=== PATIENT | male | born 1940 | race Caucasian/White ===

== ENCOUNTER → 2017-08-25 13:06 | Outpatient (CLI) | payer MEDICARE, OTHER | END | disposition home or self-care (01) | LOC: D.CT 13:06 | DX: K57.32 Diverticulitis of large intestine without perforation or abscess without bleeding (principal) ==

== ENCOUNTER 2018-01-21 11:48 | Inpatient (IN) | payer MEDICARE, OTHER ==
[~2018-01-21] VITALS: Ht 175.3 cm; Wt 75.5 kg
--- NOTE | ~2018-01-21 | MORECARE ---
CASE MANAGEMENT DISCHARGE SUMMARY PATIENT: KATHY MARTINS UNIT: [id number] ADM DATE: 01/21/18 AGE: 77 : 42 SEX: M ROOM/BED: D.2220 AUTHOR: ALMADOC PHYSICIAN: REFERRING PHYSICIAN: BRYSON JUAREZ DO DATE OF SERVICE: 01/23/18 Discharge Plan Patient Name: KATHY MARTINS Facility[facility]:[place] : 1940 Planned Disposition: Home Anticipated Discharge Date: Discharge Date: Expected LOS: Initial Reviewer: [email or web address] Initial Review Date: 01/21/2018 Generated: 01/23/18 12:44 pm Comments DCP- Discharge Planning Updated by [email or web address]: Charity Kitchen on 01/23/18 10:[address] Patient Name: KATHY MARTINS Admission Status: ER Accout number: [id number] Admission Date: 01-21-2018 : 1940 Admission Diagnosis: Attending: Bryson Juarez Current LOS: 2 Anticipated DC Date: Planned Disposition: Home Primary Insurance: MEDICARE A & B Discharge Planning Comments: CM met with patient to assess discharge planning needs. Patient lives independently at home and plans to return there at discharge. 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 He denies any HH or DME needs at this time. There are 2 steps to his home that he does not have any problems with . CM will continue to follow and assist as needed Fine Artist: Charity Kitchen DCPIA - Discharge Planning Initial Assessment Updated by [email or web address]: Charity Kitchen on 01/23/18 11:40 am * Is the patient Alert and Oriented? Yes * How many steps to enter\exit or inside your home? * PCP LARRY * Pharmacy [facility] * Preadmission Environment Home with Family * ADLs Independent * Equipment None * List name and contact numbers for known caregivers / representatives who currently or will assist patient after discharge: BRANDIE () [phone] * Verbal permission to speak to the caregivers and representatives has been obtained from the patient. Yes * Community resources currently utilized None * Additional services required to return to the preadmission environment? No * Can the patient safely return to the preadmission environment? Yes * Has this patient been hospitalized within the prior 30 days at any hospital? No Patient Name: KATHY MARTINS Page [id number] at 1144 All edits/amendments must be made on the electronic document DICTATION DATE: 01/23/18 114 CHHA: ALEC 01/23/18 1143 RPT#: [id number] DC DATE: STATUS: ADM IN [facility] [address] [place] [address] END OF REPORT
--- NOTE | ~2018-01-21 | EC ---
PATIENT:KATHY MARTINS DATE OF SERVICE: 01/21/18 SEX: M MEDICAL RECORD: [id number] DATE OF : [birth year] LOCATION:D.MS [address]222 AGE OF PATIENT: 77 ADMISSION DATE: 01/21/18 REFERRING PHYSICIAN: INTERPRETING PHYSICIAN: MERLIN CASTELLANOS MD ECHOCARDIOGRAM REPORT ECHO CHARGES 4 ECHO COMPLETE Date: 01/22/18 CLINICAL DIAGNOSIS: SYNCOPE ECHOCARDIOGRAPHIC MEASUREMENTS (adult normal given) AC root (d.<3.7cm) 4.0 cm LV Septum d (<1.2 cm> 0.8 cm Valve Excursion 1.5 cm LV Septum (systole) 1.2 cm Left Atria (s.<4.0cm> 2.7 cm LVPW d(<1.2cm) 1.2 cm RV (d.<2.3cm) 2.7 cm LVPW (sytole) 1.3 cm LV diastole(<5.6CM) 5.2 cm MV E-F(>70mm/sec) cm LV systole 4.3 cm LVOT Diameter 1.7 cm MV exc.(>10mm) cm Est.ejection fraction (50-75%) % DOPPLER: LVIT cm/sec A 76 cm/sec E 77 cm/sec LA cm/sec RVSP 18.0 mmHg LVOT 102 cm/sec AOP1/2T m/s Asc. Ao 124 cm/sec RVOT 79 cm/sec RA cm/sec PA 49 cm/sec AV Gradient Peak 6.2 mmHg AV Mean 3.8 mmHg AV Area 2.5 cm MV Gradient Peak 2.9 mmHg MV Mean 2.1 mmHg MV Area cm COMMENTS: Block Engraver: Surya ACOSTAPIPER SERGE Floral Department Specialist: Robert Castellanos TAPE# PACS Pericardial Effusion N DATE OF SERVICE: 01/23/2018 FINDINGS: 1. Left ventricular chamber size is within normal limits. Left ventricular systolic function is normal. Overall ejection fraction estimated at 65%. 2. Left atrium, right atrium, and right ventricular chamber sizes are within normal limits. 3. Valvular structures have normal structure and motion. 4. Doppler interrogation reveals only trace tricuspid regurgitation, no other valvular insufficiency or stenosis. Pulmonary systolic pressure is normal, ECHOCARDIOGRAM REPORT [id number] KATHY MARTINS estimated 18 mmHg. 5. No evidence of pericardial effusion or left ventricular thrombus. TRANSINT:[id number] Voice Confirmation ID: [id number] DOCUMENT ID: [id number] MERLIN CASTELLANOS MD at 1324 CC: [id number] DICTATION DATE: 01/23/18 1112 FIRST OFFICER AND FLIGHT INSTRUCTOR: 01/23/18 1229 ADM [place] [id number] [place] [id number]
[2018-01-21] MEDS ORDERED: LEVOTHYROXINE (11:49)
[2018-01-21 13:16] LABS: HEMATOCRIT 41.1 % (42.0-54.0); HEMOGLOBIN 13.4 g/dL (13.5-17.5); MCH 27.4 pg (26.0-34.0); MCHC 32.6 g/dL (31.0-37.0); MEAN PLATELET VOLUME 9.3 fL (7.4-10.4); PLATELET COUNT 223 10x3/uL (130-400); RBC 4.89 10x6/uL (4.20-6.10); RDW 13.7 % (11.5-14.5); WBC 20.4 10x3/uL (4.8-10.8)
[2018-01-21 13:23] LABS: ALBUMIN 3.4 g/dL (3.4-5.0); ALKALINE PHOSPHATASE 34 U/L (46-116); ALT (SGPT) 19 U/L (10-68); BILIRUBIN - TOTAL 0.25 mg/dL (0.2-1.3); CALC OSMOLALITY 281 mosm/kg (275-300); CALCIUM 8.9 mg/dL (8.5-10.1); CARBON DIOXIDE 27.8 mmol/L (21.0-32.0); CHLORIDE - SERUM 101 mmol/L (98-107); GLUCOSE 160 mg/dL (74-106); POTASSIUM - SERUM 4.4 mmol/L (3.5-5.1); PROTEIN - SERUM 7.6 g/dL (6.4-8.2); SODIUM 139 mmol/L (136-145); UREA NITROGEN 16 mg/dL (7-18); eGFR NON AFRICAN AMERICAN 77 mL/min (90-120)
[2018-01-21 13:32] LABS: EOSINOPHILS 1 % (0-7); LYMPHOCYTES 15 % (15-50); MONOCYTES 5 % (2-11); NEUTROPHILS 64 % (40-80); PLATELET ESTIMATE NORMAL; PLATELET MORPHOLOGY NORMAL PLT MORPH
[2018-01-21 13:34] LABS: CKMB 0.6 U/L (0.0-3.6); CREATINE KINASE 76 UL (21-232); LIPASE 127 U/L (73-393); TROPONIN-I < 0.017 ng/mL (0.000-0.060)
[2018-01-21 14:37] LABS: APPEARANCE CLEAR (CLEAR); BILIRUBIN NEGATIVE (NEGATIVE); COLOR YELLOW (YELLOW); GLUCOSE NEGATIVE (NEGATIVE); KETONE NEGATIVE (NEGATIVE); NITRITE NEGATIVE (NEGATIVE); PROTEIN TRACE mg/dL (NEGATIVE); SPECIFIC GRAVITY 1.015 (1.005-1.020); UROBILINOGEN NORMAL (NORMAL)
[2018-01-21 17:39] VITALS: BP 146/77; BMI 24.5
[2018-01-21 20:00] VITALS: BP 124/50
[2018-01-22] VITALS: BP 104/50
[2018-01-22 03:58] LABS: BASOPHILS 0.1 % (0-2); EOSINOPHILS 0.1 % (0-7); HEMATOCRIT 34.4 % (42.0-54.0); HEMOGLOBIN 11.1 g/dL (13.5-17.5); IMMATURE GRANULOCYTES 0.3 % (0-5); LYMPHOCYTES 19.1 % (15-50); MCH 26.7 pg (26.0-34.0); MCHC 32.3 g/dL (31.0-37.0); MCV 82.9 fL (80.0-100.0); MEAN PLATELET VOLUME 8.9 fL (7.4-10.4); MONOCYTES 8.4 % (2-11); PLATELET COUNT 222 10x3/uL (130-400); RBC 4.15 10x6/uL (4.20-6.10); RDW 13.8 % (11.5-14.5)
[2018-01-22 04:00] VITALS: BP 117/63
[2018-01-22 04:06] LABS: ANION GAP 9.5 mmol/L (8-16); CALCIUM 7.8 mg/dL (8.5-10.1); CARBON DIOXIDE 29.2 mmol/L (21.0-32.0); CREATININE - SERUM 1.1 mg/dL (0.6-1.3)
[2018-01-22 04:07] LABS: POTASSIUM - SERUM 3.7 mmol/L (3.5-5.1)
[2018-01-22 04:11] LABS: WBC 12.3 10x3/uL (4.8-10.8)
[2018-01-22 07:48] LABS: T4 THYROXIN - FREE 0.82 ng/dL (0.76-1.46); THYROID STIMULATING HORMONE 1.02 uIU/mL (0.36-3.74)
[2018-01-22 08:45] VITALS: BP 123/61
[2018-01-22 13:05] VITALS: BP 122/54
[2018-01-22 16:35] VITALS: BP 139/64
[2018-01-22 20:00] VITALS: BP 138/73
[2018-01-23] VITALS: BP 131/70
[2018-01-23 04:44] LABS: BASOPHILS 0.2 % (0-2); EOSINOPHILS 1.2 % (0-7); HEMATOCRIT 35.4 % (42.0-54.0); HEMOGLOBIN 11.5 g/dL (13.5-17.5); IMMATURE GRANULOCYTES 0.6 % (0-5); LYMPHOCYTES 14.6 % (15-50); MCH 26.7 pg (26.0-34.0); MCHC 32.5 g/dL (31.0-37.0); MCV 82.1 fL (80.0-100.0); MONOCYTES 6.8 % (2-11); NEUTROPHILS 76.6 % (40-80); PLATELET COUNT 211 10x3/uL (130-400); RBC 4.31 10x6/uL (4.20-6.10); RDW 13.8 % (11.5-14.5)
[2018-01-23 04:45] LABS: WBC 6.5 10x3/uL (4.8-10.8)
[2018-01-23 04:49] LABS: ALBUMIN 2.8 g/dL (3.4-5.0); ANION GAP 9.3 mmol/L (8-16); BILIRUBIN - TOTAL 0.33 mg/dL (0.2-1.3); CALCIUM 8.4 mg/dL (8.5-10.1); CARBON DIOXIDE 30.3 mmol/L (21.0-32.0); CREATININE - SERUM 1.1 mg/dL (0.6-1.3); MAGNESIUM - SERUM 1.8 mg/dL (1.8-2.4); PHOSPHOROUS 2.3 mg/dL (2.5-4.9); POTASSIUM - SERUM 3.6 mmol/L (3.5-5.1); PROTEIN - SERUM 7.1 g/dL (6.4-8.2)
[2018-01-23 05:00] VITALS: BP 134/61
[2018-01-23 09:21] VITALS: BP 139/80
[2018-01-23 12:11] VITALS: Ht 175.3 cm; Wt 75.5 kg
[2018-01-23] MEDS ORDERED: PLAVIX75 MG PO (16:41)
[2018-01-23] MEDS ORDERED: ASPIRIN81 MG PO (16:42)
[2018-01-23] MEDS ORDERED: SYNTHROID50 MCG PO (16:43)
== END 2018-01-23 17:43 | disposition home or self-care (01) | DRG 67 ==
LOC: D.ER 11:48 → D.MS 15:34 → D.EDHOLD 15:34 → D.MS 16:00
PROVIDERS: Emergency Medicine; Family Medicine
DX: I65.23 Occlusion and stenosis of bilateral carotid arteries (principal); J18.1 Lobar pneumonia, unspecified organism

== ENCOUNTER 2018-01-26 10:00 | Inpatient (IN) | payer MEDICARE, OTHER ==
[2018-01-25 13:36] LABS: INR 1.03 (0.85-1.17)
[2018-01-25 13:37] LABS: APTT 36.3 SECONDS (22.8-39.4)
[~2018-01-26] VITALS: Ht 175.3 cm; Wt 73.6 kg
[2018-01-26] VITALS (40 sets, daily range): BP systolic 94–136; BP diastolic 43–69; BMI 23.5
--- NOTE | ~2018-01-26 | MORECARE ---
CASE MANAGEMENT DISCHARGE SUMMARY PATIENT: KATHY MARTINS UNIT: [id number] ADM DATE: 01/26/18 AGE: 77 : 42 SEX: M [facility] AUTHOR: DORIS MARQUEZ PHYSICIAN: REFERRING PHYSICIAN: BRAYDON JARQUIN MD DATE OF SERVICE: 01/29/18 Discharge Plan Patient Name: KATHY MARTINS [facility] [facility] 1940 Planned Disposition: Home Anticipated Discharge Date: Discharge Date: Expected LOS: Initial Reviewer: [email or web address] Initial Review Date: 01/29/2018 Generated: 01/29/18 2:00 pm DCPIA - Discharge Planning Initial Assessment Updated by [email or web address]: Sendy Mccurdy on 01/29/18 12:58 pm * Is the patient Alert and Oriented? Yes * How many steps to enter\exit or inside your home? * PCP DR. JUAREZ * Pharmacy [facility] * Preadmission Environment Home with Family * ADLs Independent * Equipment None * List name and contact numbers for known caregivers / representatives who currently or will assist patient after discharge: BRANDIE MARTINS [facility]- [phone] * Verbal permission to speak to the caregivers and representatives has been obtained from the patient. Yes * Community resources currently utilized None * Additional services required to return to the preadmission environment? No * Can the patient safely return to the preadmission environment? Yes * Has this patient been hospitalized within the prior 30 days at any hospital? Yes Patient Name: KATHY MARTINS Page 50040 at 1301 All edits/amendments must be made on the electronic document DICTATION DATE: 01/29/18 1300 SUBSYSTEMS ENGINEER: ALEC 01/29/18 1300 RPT#: [id number] DC DATE: STATUS: ADM IN [facility] [address] [place] [address] END OF REPORT
--- NOTE | ~2018-01-26 | MORECARE ---
CASE MANAGEMENT DISCHARGE SUMMARY PATIENT: KATHY MARTINS UNIT: [id number] ADM DATE: 01/26/18 AGE: 77 : 42 SEX: M [facility]BED: [facility] AUTHOR: ALMA,DOC PHYSICIAN: REFERRING PHYSICIAN: BRAYDON JARQUIN MD DATE OF SERVICE: 01/29/18 Discharge Plan Patient Name: KATHY MARTINS Facility: [facility]:[place] : 1940 Planned Disposition: Home Anticipated Discharge Date: Discharge Date: Expected LOS: Initial Reviewer: [email or web address] Initial Review Date: 01/29/2018 Generated: 01/29/18 2:10 pm Comments DCP- Discharge Planning Updated by [email or web address]: Sendy Mccurdy on 01/29/18 12:[address] Patient Name: KATHY MARTINS Admission Status: Elective Accout number: [id number] Admission Date: 01-26-2018 : 1940 Admission Diagnosis: Attending: BRAYDON JARQUIN Current LOS: 3 Anticipated DC Date: Planned Disposition: Home Primary Insurance: MEDICARE A & B Discharge Planning Comments: CM met with patient and spouse at bedside. Patient states he plans on returning home after discharge with his . Spouse will transport him home. Patient denies any home health services or DME. Patient states he was able to perform all ADL's independently. Patient denies any discharge needs at this time. IMM explained and served 01/29/18 @ 1246. CM will continue to follow and assist as needed with discharge planning / needs. Disability Aide: Sedny Mccurdy DCPIA - Discharge Planning Initial Assessment Updated by [email or web address]: Sendy Mccurdy on 01/29/18 12:58 pm * Is the patient Alert and Oriented? Yes * How many steps to enter\exit or inside your home? * PCP DR. JUAREZ * Pharmacy [facility] * Preadmission Environment Home with Family * ADLs Independent * Equipment None * List name and contact numbers for known caregivers / representatives who currently or will assist patient after discharge: BRANDIE MARTINS - SPOUSE- [phone] * Verbal permission to speak to the caregivers and representatives has been obtained from the patient. Yes * Community resources currently utilized None * Additional services required to return to the preadmission environment? No * Can the patient safely return to the preadmission environment? Yes * Has this patient been hospitalized within the prior 30 days at any hospital? Yes Last DP export: 01/29/18 12:01 Patient Name: KATHY MARTINS Page [phone] at 1310 All edits/amendments must be made on the electronic document DICTATION DATE: 01/29/18 1310 FREIGHT HUSTLER: ALEC 01/29/18 1310 RPT#: [id number] DC DATE: STATUS: ADM IN [facility] [address] [place] [address] END OF REPORT
--- NOTE | ~2018-01-26 | OP ---
PATIENT NAME: KATHY MARTINS MEDICAL RECORD: [id number] :[birth year] LOCATION:[facility]IN[facility] Ward.CV02 ADMISSION DATE:01/26/18 SURGEON: MERLIN DAVIS MD DATE OF OPERATION: 01/28/2018 PROCEDURES: 1. PTCA stent RCA. 2. Left heart catheterization. 3. Selective coronary angiography. 4. Left ventriculogram. INDICATION: Angina and coronary artery disease. PROCEDURE IN DETAIL: After informed consent was obtained and after a detailed description of the risks, benefits as well as alternative therapies, the patient elected to proceed with angiogram and angioplasty. The right femoral area was prepped and draped in normal sterile fashion. Right femoral artery was cannulated via modified Seldinger technique with placement of 6-Faroese sheath. All catheters exchanged through this sheath. FINDINGS: The left ventriculogram was performed in standard 30-degree BALDERAS view, reveals good cardiac wall motion throughout all segments. Overall ejection fraction estimated 60%. SELECTIVE CORONARY ANGIOGRAPHY: 1. Left main is with no significant angiographic disease. 2. Left anterior descending has 80% stenosis in mid vessel. The diagonal has 90% stenosis. 3. The left circumflex is tortuous, but with only mild irregularities. 4. The right coronary has 80% to 85% stenosis in mid vessel. PTCA STENT OF THE RIGHT CORONARY: The stent used was a 3.5 x 22 mm Integrity. Result was 0% residual stenosis. OVERALL IMPRESSION: Successful percutaneous transluminal coronary angioplasty stent of the RCA going from 80% to 85% initial stenosis. PLAN: PTCA stent of the LAD in the near future. TRANSINT:[id number] Voice Confirmation ID: [id number] DOCUMENT ID: [id number] MERLIN DAVIS MD at 1457 CC: [id number] DICTATION DATE: 01/28/18 1225 MIXING TANK OPERATOR: 01/28/18 1555 DIS IN 01/29/18 [place] [id number]
--- NOTE | ~2018-01-26 | HEMODYNAMI ---
PATIENT:KATHY MARTINS MEDICAL RECORD: [id number] : [birth year] [facility] ADMISSION DATE: 01/26/18 Generatedon:01/28/201812:26 Patient name: AKTHY MARTINS Patient #: [id number] SSN: : 1940 Date of study: 01/28/2018 Page: Of Hemodynamic Procedure Report Patient Data Patient Demographics Procedure consent was obtained First Name: KATHY Gender: Male Last Name: ELIEZER : 1940 [facility] Initial: L Age: 77 year(s) Patient #: [id number] Race: Unknown Additional ID: [id number] Contact details [address]: [address] [place] [address] State: [place] City: [place] Zip code: [address] Past Medical History Allergies: No known allergies Admission Admission Data Admission Date: 01/26/2018 Admission Time: 10:00 Room #: [facility] Procedure Procedure Types Cath Procedure Diagnostic Procedure LHC LHC w/Coronaries PCI Procedure Coronary Stent Coronary Stent Initial Procedure Description Procedure Date Procedure Date: 01/28/2018 Procedure Start Time: 12:12 Procedure End Time: 12:24 Procedure Staff Name Function Jona Castellanos MD Performing Physician Stella Marti RT Monitor Brad Benítez RN Nurse Reginaldo Benton RT Scrub Procedure Data Cath Procedure Fluoroscopy Diagnostic fluoroscopy Total fluoroscopy Time: 1.9 time: 1.9 min min Diagnostic fluoroscopy Total fluoroscopy dose: 272 dose: 272 mGy mGy Contrast Material Contrast Material Type Amount (ml) Isovue 300 71 Entry Location Entry Primary Successful Side Size Upsize Upsize Entry Closure Succes sful Closure Location (Fr) 1 (Fr) 2 (Fr) Remarks Device Remarks Femoral Right 6 Fr Exoseal artery Short Estimated blood loss: 10 ml Diagnostic catheters Device Type Used For End Catheter Placement MULTIPACK Pigtail 5 Fr LV Angiography catheter MULTIPACK JL 4.0 5Fr Left Coronary catheter Angiography MULTIPACK 3DRC 5Fr Right Coronary catheter Angiography Procedure Complications No complications Procedure Medications Medication Administration Route Dosage Oxygen etCO2 Nasal cannula 2 l/min Heparin Flush Bag added to field 2 bags (1000units/500ml NS) 0.9% NaCl I.V. 100 ml/hr Fentanyl I.V. 50 mcg Versed I.V. 1 mg Fentanyl I.V. 50 mcg Versed I.V. 1 mg Heparin Bolus I.V. 4000 units Hemodynamics Rest Heart Rate: 109 (bpm) Snapshots Pre Cath Intra NCS Post Cath Vital Signs Time Heart Resp SPO2 etCO2 NIBP (mmHg) Rhythm Pain Sedation Rate (ipm) (%) (mmHg) Status Level (bpm) 12:00:34 109 16 95 0 157/96(127) NSR 0 (11) 10(A) , No pain 12:04:50 100 17 96 31.7 152/85(127) NSR 0 (11) 10(A) , No pain 12:09:00 91 16 99 12.8 143/86(111) NSR 0 (11) 10(A) , No pain 12:13:14 95 16 98 20.4 133/73(99) NSR 0 (11) 9(A) , No pain 12:17:24 91 17 98 17.3 132/72(97) NSR 0 (11) 9(A) , No pain 12:21:38 95 17 98 18.1 134/74(99) NSR 0 (11) 9(A) , No pain Medications Time Medication Route Dose Verified Delivered Reason Notes Effectiveness by by 12:00:06 Oxygen etCO2 2 Jona Salinas Per physician Nasal l/min Emanuel Benítez RN cannula 12:00:14 Heparin Flush added 2 Jona Salinas used for Bag to bags Emanuel Benítez demo coordinator (1000units/500ml field NS) 12:00:23 0.9% NaCl I.V. 100 Jona Brad Per physician ml/hr Emanuel Benítez RN 12:09:53 Fentanyl I.V. 50 Jona Salinas for sedation mcg Emanuel Benítez RN 12:09:59 Versed I.V. 1 mg Jona Salinas for sedation Emanuel Benítez RN 12:13:44 Fentanyl I.V. 50 Jona Salinas for sedation mcg Emanuel Bneítez RN 12:13:49 Versed I.V. 1 mg Jona Salinas for sedation Emanuel Benítez RN 12:18:30 Heparin Bolus I.V. 4000 Jona Salinas for units Emanuel Benítez RN anticoagulation Procedure Log Time Note 11:40:13 Brad Benítez RN sent for patient. Start room use. 11:48:04 Time tracking: Call back (After hours or weekends) 11:48:19 Plan of Care:Hemodynamics will remain stable., Cardiac rhythm will remain stable., Comfort level will be maintained., Respiratory function will remain adequate., Patient/ family verbilizes understanding of procedure., Procedure tolerated without complication., Recovers from procedure without complications.. 11:53:59 Patient received from CVICU to CCL 1 Alert and oriented. Tansferred to table in Supine position. 11:54:00 Warm blankets applied, and ramon hugger turned on for patient comfort. 11:54:01 Correct patient and procedure confirmed by team. 11:54:02 Signed procedure consent form obtained from patient. 11:54:03 ECG and BP/O2 sat monitors applied to patient. 11:54:04 Full Disclosure recording started 11:59:33 Vital chart was started 12:00:06 Oxygen 2 l/min etCO2 Nasal cannula was administered by Brad Benítez RN; Per physician; 12:00:14 Heparin Flush Bag (1000units/500ml NS) 2 bags added to field was administered by Brad Benítez RN; used for procedure; 12:00:23 0.9% NaCl 100 ml/hr I.V. was administered by Brad Benítez RN; Per physician; 12:03:20 Baseline sample Acquired. 12:03:25 Rhythm: sinus tachycardia 12:03:32 H&P Date Dictated: 01/28/2018 Within 30 days and on chart.. 12:03:33 Pre-procedure instructions explained to patient. 12:03:33 Pre-op teaching completed and patient verbalized understanding. 12:03:36 Family in waiting room. 12:03:38 Patient NPO since Midnight. 12:03:44 Patient allergic to No known allergies 12:03:46 Is the patient allergic to Iodine/contrast media? No. 12:03:47 Is patient on blood thinner?Yes 12:03:49 ACC The patient was administered the following blood thiners within the last 24 hours: ACCPlavix 12:03:55 Patient diabetic? No. 12:04:02 Previous problem with sedation/anesthesia? No ? 12:04:04 Snore? Yes 12:04:05 Sleep apnea? No 12:04:06 Deviated septum? No 12:04:08 Opens mouth fully? Yes 12:04:09 Sticks out tongue? Yes 12:04:10 Airway obstruction? No ? 12:04:13 Dentures? No ? 12:04:57 SHEATH Prelude 6Fr 0.035 (HAP-3R-78-035) opened to sterile field. 12:05:06 Pre procedure: right dorsailis pedis pulse 2+ Normal; easily identifiable; not easily obliterated 12:05:08 Patient pain scale 0/10 ?. 12:07:20 IV patent on arrival in left forearm with 0.9% NaCl at [facility]. 12:07:22 Lab results completed and on chart. 12:07:25 Right groin area was prepped with chlora-prep and draped in sterile fashion 12:07:26 Alarms reviewed by R. N. 12:07:27 Sharps counted by scrub and verified by R.N. 12:07:30 Use device set Femoral Dx 12:07:31 ACIST Syringe (15926) opened to sterile field. 12:07:31 Bag Decanter (2002S) opened to sterile field. 12:07:32 Medline Cath Pack ([id number]) opened to sterile field. 12:07:32 DIAGNOSTIC WIRE .035 260cm J wire ([id number]) opened to sterile field. 12:07:34 ACIST Hand Control (17545) opened to sterile field. 12:07:34 ACIST Manifold (32225) opened to sterile field. 12:07:35 DIAGNOSTIC Multipack 5Fr catheter set (JY0631) opened to sterile field. 12:07:35 Tegaderm 4 x 4 (1626W) opened to sterile field. 12:09:43 Final Timeout: patient, procedure, and site verified with staff and physician. All members of the team are in agreement. 12:09:45 Right groin site verified by team. 12:09:47 Physical assessment completed. ASA score P 2 - A patient with mild systemic disease as per Jona Castellanos MD. 12:09:49 Sedation plan: IV Moderate Sedation Medication:Versed, Fentanyl 12:09:53 Fentanyl 50 mcg I.V. was administered by Brad Benítez RN; for sedation; 12:09:59 Versed 1 mg I.V. was administered by Brad Benítez RN; for sedation; 12:12:45 Procedure started. 12:12:48 Local anesthetic to right femoral artery with Lidocaine 2% by Jona Castellanos MD.INITIAL ACCESS ONLY 12:12:50 Zero performed for pressure channel P1 12:13:19 A 6 Fr Short sheath was inserted into the Right Femoral artery 12:13:44 Fentanyl 50 mcg I.V. was administered by Brad Benítez RN; for sedation; 12:13:49 Versed 1 mg I.V. was administered by Brad Benítez RN; for sedation; 12:14:08 A MULTIPACK Pigtail 5 Fr catheter was advanced over the wire and used for LV Angiography. 12:14:22 LV gram done using BALDERAS 12:14:27 Injector settings: Ml/sec: 10, Volume: 20, 12:14:34 EF : 60 % 12:14:36 Catheter removed. 12:14:54 A MULTIPACK JL 4.0 5Fr catheter was advanced over the wire and used for Left Coronary Angiography. 12:15:21 Use device set TAU PCI 12:15:38 INFLATOR Merit BasixCompak (DV6852) opened to sterile field. 12:15:44 CHOICE PT Extra Support 182cm wire ([id number]) opened to sterile field. 12:15:53 Catheter removed. 12:15:59 A MULTIPACK 3DRC 5Fr catheter was advanced over the wire and used for Right Coronary Angiography. 12:16:31 Catheter removed. 12:18:30 Heparin Bolus 4000 units I.V. was administered by Brad Benítez RN; for anticoagulation; 12:18:45 6 Fr HS II SH guide catheter was inserted over the wire 12:18:56 GUIDE 6FR HS II SH catheter ([id number]) opened to sterile field. 12:19:11 CHOICE PT ES wire advanced. 12:19:37 Place stent Inflation Number: 1 A INTEGRITY RX 3.5 x 22 stent ([id number]) was prepped and advanced across the Mid RCA. The stent was deployed at 11 SARAH for 0:05 (min:sec). 12:20:07 Stent catheter was removed intact over wire. 12:20:07 Wire removed. 12:20:08 Guide catheter removed. 12:20:18 Sheath removed intact; hemostasis achieved with Exoseal to the Right Femoral artery. 12:20:20 Procedure ended.(Physican Out) 12:21:50 Fluoroscopy time 01.90 minutes. 12::58 Fluoroscopy dose: 272 mGy 12::58 Flurop Dose total: 272 12:22:04 Contrast amount:Isovue 300 71ml. 12:22:06 Sharps counted by scrub and verified by R.N. 12:22:07 Insertion/operative site no bleeding no hematoma. 12:22:10 Post-op/insertion site Right Femoral artery dressed using a 4 x 4 and Tegaderm. 12:22:14 Post right femoral artery:stable, clean and dry 12:22:15 Post Procedure Pulses reassessed and unchanged 12:22:18 Post-procedure physical assessment completed. ASA score P 2 - A patient with mild systemic disease as per Jona Castellanos MD. 12:22:23 Post procedure rhythm: unchanged. 12:22:27 Estimated blood loss: 10 ml 12:22:29 Post procedure instruction explained to patient.Patient verbalizes understanding. 12:22:30 Patient needs reinforcement of post procedure teaching. 12:22:36 Procedure type changed to Cath procedure, Diagnostic procedure, LHC, LHC w/Coronaries, PCI procedure, Coronary Stent, Coronary Stent Initial 12:22:41 Procedure Complication : No complications 12:22:44 See physician's report for complete and final results. 12:22:53 EXOSEAL 6Fr (EX600) opened to sterile field. 12:23:11 Procedure and supply charges have been captured, reviewed, submitted and are correct. 12:24:28 Vital chart was stopped 12:24:31 Report given to [employer] II. 12:24:36 Patient transfered to CVICU with Bed. 12:24:46 Procedure ended. 12:24:46 Full Disclosure recording stopped 12:24:49 End room use (Document Last) Intervention Summary Intervention Notes Time ActionType Lesion and Equipment Action# Pressure Duration Attributes Used 12:19:37 Place stent Mid RCA INTEGRITY RX 1 11 00:05 3.5 x 22 stent ([id number]) Device Usage Item Name Manufacture Quantity Catalog Number Hospital Part Current Minimal Lot# / Charge Number Stock Stock Serial# Code SHEATH Prelude Merit 1 [id number] 311656 5 6Fr 0.035 Medical ([id number]) ACIST Syringe Acist 1 83595 270829 069136 509303 20 (20989) Medical Systems Inc Bag Decanter Microtek 1 2001S 916009 43314 838194 5 (2001S) Medical Inc. Medline Cath Medline 1 [id number] 668217 41478 378197 5 Pack ([id number]) DIAGNOSTIC WIRE St Etienne 1 037000 929056 324286 955323 30 .035 260cm J wire (330862) ACIST Hand Acist 1 17763 808527 506150 994469 5 Control (06022) Medical Systems Inc ACIST Manifold Acist 1 11939 387616 171579 538453 5 (66263) Medical Systems Inc DIAGNOSTIC Cardinal 1 [id number] 544614 26066 069276 30 Multipack 5Fr Health catheter set ([id number]) Tegaderm 4 x 4 3M 1 1626W 903210 517527 736691 5 (1626W) MULTIPACK Cardinal 1 125920 5 Pigtail 5 Fr Health catheter MULTIPACK JL Cardinal 1 247921 5 4.0 5Fr Health catheter INFLATOR Merit Merit 1 QA2091 292231 458942 448693 15 [employer]arg[employer] (JD0227) CHOICE PT Extra [place] 1 [id number] 139508 877381 555416 5 Support 182cm Scientific wire ([id number]) MULTIPACK 3DRC Cardinal 1 936082 5 5Fr catheter Health GUIDE 6FR HS II Medtronic 1 [id number] 658730 32024 395463 1 SH catheter ([id number]) INTEGRITY RX Medtronic 1 [id number] 703482 847991 097377 5 [id number] 3.5 x 22 stent ([id number]) EXOSEAL 6Fr Cardinal 1 EX600 267826 358610 251100 10 (EX600) Health Signature Audit [place] Stage Time Signature Unsigned Intra-Procedure 01/28/2018 Stella 12:26:40 PM Counts RT(R) Signatures Monitor : Stella Signature : Counts RT Date : Time : [place] [address] [place] [address]
--- NOTE | ~2018-01-26 | CN ---
PATIENT NAME:KATHY MARTINS MEDICAL RECORD: [id number] : 44 LOCATION:[facility].CV02 ADMIT DATE: 01/26/18 ACCOUNT: [id number] CONSULTING PHYSICIAN: MERLIN DAVIS MD REFERRING PHYSICIAN: BRAYDON JARQUIN MD DATE OF CONSULTATION: 01/27/2018 ADMITTING DIAGNOSES: 1. Chest pain. 2. Bradycardia. 3. Syncope. 4. Carotid stenosis. HISTORY OF PRESENT ILLNESS: This is a gentleman who had syncope, had a carotid evaluation, had very significant carotid stenosis, underwent carotid endarterectomy; however, last night in the postop phase, he had a heart rate in the 30s with near syncope and chest pain. PHYSICAL EXAMINATION: GENERAL APPEARANCE: Well-nourished, well-developed, appears stated age. Level of distress, comfortable. PSYCHIATRIC: Mental status, alert, normal affect. Orientation, oriented to time, place and person. EYES: Lids and conjunctiva, noninjected. No discharge, no pallor. ENT: Lips, teeth, gums, normal dentition. Oropharynx, no cyanosis, no pallor. NECK: Carotid arteries, bilateral normal upstroke, no bruits, no thrills. JUGULAR VEINS: No jugular venous pressure or distention. CERVICAL LYMPH NODES: Nontender, nonenlarged. THYROID: Not enlarged. Nontender. No nodules. LUNGS: Respiratory effort, unlabored. CHEST: Normal curvature. No thoracic deformity. No chest wall tenderness. Percussion, resonant. Auscultation, clear. No wheezes, no rales, no rhonchi. CARDIOVASCULAR: Precordial exam, nondisplaced. No heaves or pericardial thrills. Rate and rhythm, regular. Heart sounds, normal S1, normal S2. No S3, no gallop, no rub. Systolic murmur, not heard. Diastolic murmur, not heard. EXTREMITIES: No cyanosis, no edema. Peripheral pulses, full and equal in all extremities, except as noted. No bruits appreciated. ABDOMEN: Soft, nondistended. Normal aorta. No bruit. Nontender. No masses. Liver, nontender, no hepatomegaly. Spleen, nontender, no splenomegaly. MUSCULOSKELETAL: No joint tenderness. No joint swelling. No erythema. NEUROLOGICAL: Normal gait, normal strength, normal tone. SKIN: Warm and dry. OVERALL IMPRESSION: Symptomatic bradycardia, most likely ischemic driven. He is getting permanent pacemaker today. We will need to evaluate the coronaries. We will perform coronary angiography after the permanent pacemaker. TRANSINT:[id number] Voice Confirmation ID: [id number] DOCUMENT ID: [id number] CONSULT REPORT [id number] KATHY MARTINS JEFFREY MD at 1456 CC: [id number] DICTATION DATE: 01/27/18 1049 [employer] S[employer] INSTRUCTOR: 01/27/18 1332 DIS IN 01/29/18 [facility] [address] [place] [address]
--- NOTE | ~2018-01-26 | OP ---
PATIENT NAME: KATHY MARTINS MEDICAL RECORD: [id number] :44 [facility] ADMISSION DATE:01/26/18 SURGEON: SJ JARQUIN MD DATE OF OPERATION: 01/26/2018 SURGEON: Sj Jarquin MD ANESTHESIA: General endotracheal, Dr. Connor. OPERATION PERFORMED: Right carotid endarterectomy with patch angioplasty. PREOPERATIVE DIAGNOSIS: Severe right internal carotid artery stenosis. POSTOPERATIVE DIAGNOSIS: Severe right internal carotid artery stenosis. INDICATION FOR OPERATION: Severe right internal carotid artery stenosis. FINDINGS AT OPERATION: Severe greater than 90% right internal carotid artery stenosis. ESTIMATED BLOOD LOSS: Less than 100 mL. There were no EEG changes with clamping or unclamping of the carotid artery. DESCRIPTION OF PROCEDURE: After informed consent and adequate preoperative medication evaluation, the patient was brought to the operating room, placed on table in supine position. After induction of general endotracheal anesthesia and application of appropriate monitoring devices, the right neck and chest were prepped and draped in sterile field, utilizing Betadine scrub, alcohol, and Betadine solution. Betadine-impregnated drape was also used. An oblique incision was made in the skin crease. Dissection carried down the fascia. Hemostasis maintained with electrocautery. Facial vein was identified and divided. Utilizing sharp dissection, the common carotid, internal and external carotid arteries were dissected free from surrounding structures, protecting the neurological structures. The patient was given a calculated dose of heparin, after 3 minutes, clamps were applied. After 2 minutes, no EEG change. The arteriotomy was made and extended with Ragland scissors. Artery underwent endarterectomy sharply. Artery underwent extensive debridement and irrigation. Utilizing a CorMatrix vascular patch and running 7-0 Prolene suture, the arteriotomy was closed with patch angioplasty technique. All maneuvers to remove trapped air were performed. The clamps removed sequentially. There were no EEG changes. The patient was given a calculated dose of protamine to reverse the heparin. Hemostasis was achieved. A #7 Ned-Aguilar drain was left in the depths of wound and brought out through the base of the neck. Neck was again irrigated. Instrument counts and sponge count were correct times 2. Neck was closed in layers utilizing 3-0 Vicryl on the platysma, 5-0 subcuticular Monocryl on the skin. Sterile dressings were applied. The patient tolerated the procedure well and was transferred to the CV ICU in satisfactory condition. TRANSINT:[id number] Voice Confirmation ID: [id number] DOCUMENT ID: [id number] OPERATIVE REPORT [id number] KATHY MARTINS EDWARD MD at 1313 CC: [id number] DICTATION DATE: 01/26/18 1506 BATCH TANK CONTROLLER: 01/26/18 2153 [place] [address]
--- NOTE | ~2018-01-26 | MORECARE ---
CASE MANAGEMENT DISCHARGE SUMMARY PATIENT: KATHY MARTINS UNIT: [id number] ADM DATE: 01/26/18 AGE: 77 : 42 SEX: M ROOM/BED: D[facility] AUTHOR: [place] PHYSICIAN: REFERRING PHYSICIAN: BRAYDON JARQUIN MD DATE OF SERVICE: 01/29/18 Discharge Plan Patient Name: KATHY MARTINS Facility: [facility]:[place] : 1940 Planned Disposition: Home Anticipated Discharge Date: Discharge Date: 01/29/2018 Expected LOS: Initial Reviewer: [email or web address] Initial Review Date: 01/29/2018 Generated: 01/29/18 2:27 pm Comments DCP- Discharge Planning Updated by [email or web address]: Sendy Mccurdy on 01/29/18 12:[address] Patient Name: KATHY MARTINS Admission Status: Elective Accout number: [id number] Admission Date: 01-26-2018 : 1940 Admission Diagnosis: Attending: BRAYDON JARQUIN Current LOS: 3 Anticipated DC Date: Planned Disposition: Home Primary Insurance: MEDICARE A & B Discharge Planning Comments: CM met with patient and spouse at bedside. Patient states he plans on returning home after discharge with his . Spouse will transport him home. Patient denies any home health services or DME. Patient states he was able to perform all ADL's independently. Patient denies any discharge needs at this time. IMM explained and served 01/29/18 @ 6624. CM will continue to follow and assist as needed with discharge planning / needs. Hospital Secretary: Senyd Mccurdy DCPIA - Discharge Planning Initial Assessment Updated by [email or web address]: Sendy Mccurdy on 01/29/18 12:58 pm * Is the patient Alert and Oriented? Yes * How many steps to enter\exit or inside your home? * PCP DR. JUAREZ * Pharmacy [facility] * Preadmission Environment Home with Family * ADLs Independent * Equipment None * List name and contact numbers for known caregivers / representatives who currently or will assist patient after discharge: BRANDIE MARTINS - SPOUSE- [phone] * Verbal permission to speak to the caregivers and representatives has been obtained from the patient. Yes * Community resources currently utilized None * Additional services required to return to the preadmission environment? No * Can the patient safely return to the preadmission environment? Yes * Has this patient been hospitalized within the prior 30 days at any hospital? Yes Coverage Notice Reviewer: [email or web address] Rena Mccurdy Notice Issued Date-Time: 01/29/2018 12:46 Notice Type: IM Discharge Notice Notice Delivered To: Patient Relationship to Patient: Self Advertising Assistant Name: Delivery Method: HAND - Hand Delivered Ruby Days: Prior Verbal Notification: Recipient Understood Notice: Yes Recipient Signature: Yes Med Rec Note Co-signed by Attending: Coverage Notice Comment: Last DP export: 01/29/18 12:10 Patient Name: KATHY MARTINS Page [phone] at 1327 All edits/amendments must be made on the electronic document DICTATION DATE: 01/29/18 1327 SLIVER CUTTER: ALEC 01/29/18 1327 RPT#: [id number] DC DATE:01/29/18 STATUS: DIS IN [facility] [address] [place] [address] END OF REPORT
--- NOTE | ~2018-01-26 | OP ---
PATIENT NAME: KATHY MARTINS MEDICAL RECORD: [id number] :44 LOCATION:[place] [address] ADMISSION DATE:01/26/18 SURGEON: BRAYDON LAUREN MD DATE OF OPERATION: 01/27/2018 SURGEON: Braydon Lauren MD ANESTHESIA: General, Dr. [place]. OPERATION PERFORMED: Insertion of dual chamber pacing system. PREOPERATIVE DIAGNOSIS: Sick sinus syndrome. POSTOPERATIVE DIAGNOSIS: Sick sinus syndrome. INDICATION FOR OPERATION: Profound bradycardia, hypotension, and syncope. FINDINGS OF THE OPERATION: The pulse generator Medtronic Adapta A2DR01, serial number [id number]. ATRIAL LEAD: Medtronic model number 4574-45, serial number [id number]. VENTRICULAR LEAD: Medtronic model number 4074-52, serial number [id number]. LEAD ANALYSIS: Atrial lead; thresholds are 0.3 volts, current lead threshold 0.7 milliamps, resistance 497 ohms. P-wave 5.1, slew rate 2.4. Ventricular lead; threshold 0.5 volts, current lead threshold 0.5 milliamps, resistance 1089 ohms, R-wave 4.6, slew rate 4.0. ESTIMATED BLOOD LOSS: Less than 5 cc. DESCRIPTION OF PROCEDURE: After informed consent, adequate preoperative medication evaluation, the patient was brought to the operating room, placed on the table in supine position. After induction of general anesthesia, the left chest and neck prepped and draped in a sterile field, utilizing Betadine scrub, alcohol, and Betadine solution. A Betadine-impregnated drape was also used, 1% lidocaine was infiltrated in the left subclavicular space. Incision was made. Dissection carried down the fascia. Hemostasis maintained with electrocautery. A pacemaker pocket was formed. Subclavian vein was cannulated with the introducers, leads placed in the heart. The above electrophysiologic study was done. They felt to be in good position. The leads were secured. The leads were then connected to pulse generator and pacemaker placed in the pocket. Pacemaker fired, captured and sensed appropriately. Pocket was irrigated. Instrument count and sponge count were correct times 2. Pocket closed in layers utilizing 3-0 Vicryl on deep subcutaneous tissue, 5-0 subcuticular Monocryl on the skin. Sterile dressings were applied. The patient tolerated the procedure well and was transferred to the ICU in satisfactory condition. TRANSINT:[id number] Voice Confirmation ID: [id number] DOCUMENT ID: [id number] OPERATIVE REPORT [id number] KATHY MARTINS EDWARD MD at 1313 CC: [id number] DICTATION DATE: 01/27/18 1316 ELECTRICAL CONSTRUCTION PROJECT MANAGER: 01/27/18 1401 ADM IN [place] [id number] [place] [address]
[~2018-01-26 10:00] MED LIST: ASPIRIN81 MG PO; LEVOTHYROXINE; PLAVIX75 MG PO; SYNTHROID50 MCG PO
[2018-01-27] VITALS (50 sets, daily range): BP systolic 56–172; BP diastolic 27–76; Ht 175.3 cm; Wt 73.6 kg
[2018-01-27 06:00] LABS: HEMATOCRIT 31.9 % (42.0-54.0); HEMOGLOBIN 10.4 g/dL (13.5-17.5); MCH 26.4 pg (26.0-34.0); MCHC 32.6 g/dL (31.0-37.0); MEAN PLATELET VOLUME 8.6 fL (7.4-10.4); RBC 3.94 10x6/uL (4.20-6.10); RDW 13.4 % (11.5-14.5); WBC 9.9 10x3/uL (4.8-10.8)
[2018-01-27 06:17] LABS: ALBUMIN 2.7 g/dL (3.4-5.0); ANION GAP 12.2 mmol/L (8-16); BILIRUBIN - TOTAL 0.44 mg/dL (0.2-1.3); CALCIUM 8.1 mg/dL (8.5-10.1); CARBON DIOXIDE 27.6 mmol/L (21.0-32.0); CREATININE - SERUM 1.1 mg/dL (0.6-1.3); POTASSIUM - SERUM 3.8 mmol/L (3.5-5.1); PROTEIN - SERUM 6.9 g/dL (6.4-8.2)
[2018-01-28] VITALS (54 sets, daily range): BP systolic 109–163; BP diastolic 59–86
[2018-01-28 04:52] LABS: BASOPHILS 0.1 % (0-2); HEMATOCRIT 34.1 % (42.0-54.0); HEMOGLOBIN 11.1 g/dL (13.5-17.5); IMMATURE GRANULOCYTES 0.3 % (0-5); LYMPHOCYTES 20.1 % (15-50); MCH 26.6 pg (26.0-34.0); MCHC 32.6 g/dL (31.0-37.0); MCV 81.6 fL (80.0-100.0); MEAN PLATELET VOLUME 8.9 fL (7.4-10.4); NEUTROPHILS 69.5 % (40-80); PLATELET COUNT 210 10x3/uL (130-400); RBC 4.18 10x6/uL (4.20-6.10); RDW 13.4 % (11.5-14.5)
[2018-01-28 05:03] LABS: ALBUMIN 2.8 g/dL (3.4-5.0); ALKALINE PHOSPHATASE 19 U/L (46-116); ALT (SGPT) 19 U/L (10-68); BILIRUBIN - TOTAL 0.53 mg/dL (0.2-1.3); CALC OSMOLALITY 274 mosm/kg (275-300); CALCIUM 8.8 mg/dL (8.5-10.1); CARBON DIOXIDE 27.8 mmol/L (21.0-32.0); CHLORIDE - SERUM 102 mmol/L (98-107); CREATININE - SERUM 0.9 mg/dL (0.6-1.3); GLUCOSE 107 mg/dL (74-106); POTASSIUM - SERUM 4.1 mmol/L (3.5-5.1); PROTEIN - SERUM 7.2 g/dL (6.4-8.2); SODIUM 138 mmol/L (136-145); UREA NITROGEN 11 mg/dL (7-18); eGFR NON AFRICAN AMERICAN 87 mL/min (90-120)
[2018-01-29] VITALS (27 sets, daily range): BP systolic 105–144; BP diastolic 57–98
== END 2018-01-29 13:11 | disposition home or self-care (01) | DRG 39 ==
LOC: D.SDCHOLD 10:00 → D.CVICU 10:00 → D.SDCHOLD 12:00 → D.CVICU 13:16
PROVIDERS: Internal Medicine Cardiovascular Disease; Internal Medicine Interventional Cardiology
PROC: 03UK0JZ Supplement Right Internal Carotid Artery with Synthetic Substitute, Open Approach (ICD-10-PCS; 2018-01-26)
PROC: 03CK0ZZ Extirpation of Matter from Right Internal Carotid Artery, Open Approach (ICD-10-PCS; principal; 2018-01-26 12:00)
PROC: 0JH606Z Insertion of Pacemaker, Dual Chamber into Chest Subcutaneous Tissue and Fascia, Open Approach (ICD-10-PCS; 2018-01-27)
PROC: 02H63JZ Insertion of Pacemaker Lead into Right Atrium, Percutaneous Approach (ICD-10-PCS; 2018-01-27)
PROC: 02HK3JZ Insertion of Pacemaker Lead into Right Ventricle, Percutaneous Approach (ICD-10-PCS; 2018-01-27)
PROC: 02703DZ Dilation of Coronary Artery, One Artery with Intraluminal Device, Percutaneous Approach (ICD-10-PCS; 2018-01-28)
PROC: B2111ZZ Fluoroscopy of Multiple Coronary Arteries using Low Osmolar Contrast (ICD-10-PCS; 2018-01-28)
PROC: B2151ZZ Fluoroscopy of Left Heart using Low Osmolar Contrast (ICD-10-PCS; 2018-01-28)
PROC: 4A023N7 Measurement of Cardiac Sampling and Pressure, Left Heart, Percutaneous Approach (ICD-10-PCS; 2018-01-28)
DX: I65.23 Occlusion and stenosis of bilateral carotid arteries (principal); I49.5 Sick sinus syndrome; I95.9 Hypotension, unspecified; I25.119 Atherosclerotic heart disease of native coronary artery with unspecified angina pectoris; R55 Syncope and collapse; I25.84 Coronary atherosclerosis due to calcified coronary lesion

== ENCOUNTER → 2018-02-02 07:57 | Outpatient (CLI) | payer MEDICARE, OTHER ==
--- NOTE | 2018-02-01 14:57 | HP ---
PATIENT: KATHY MARTINS MEDICAL RECORD: [id number] ACCOUNT: [id number] LOCATION:[facility] : 44 ADMISSION DATE: 02/02/18 PCP: RON JUAREZ DO HISTORY AND PHYSICAL EXAMINATION DATE OF SERVICE 02/02/2018 ADMITTING DIAGNOSES: 1. Angina. 2. Coronary artery disease. 3. Recent percutaneous transluminal coronary angioplasty stent of the right coronary artery with concomitant disease to left anterior descending. 4. Hypertension. 5. Hyperlipidemia. HISTORY OF PRESENT ILLNESS: Mr. Martins presents with anginal symptomatology, found to have 2-vessel coronary artery disease of the RCA and LAD, underwent successful PTCA stent of the RCA, now brought back for PTCA stent of the LAD. PHYSICAL EXAMINATION: GENERAL APPEARANCE: Well-nourished, well-developed, appears stated age. Level of distress, comfortable. PSYCHIATRIC: Mental status, alert, normal affect. Orientation, oriented to time, place and person. EYES: Lids and conjunctiva, noninjected. No discharge, no pallor. ENT: Lips, teeth, gums, normal dentition. Oropharynx, no cyanosis, no pallor. NECK: Carotid arteries, bilateral normal upstroke, no bruits, no thrills. JUGULAR VEINS: No jugular venous pressure or distention. CERVICAL LYMPH NODES: Nontender, nonenlarged. THYROID: Not enlarged. Nontender. No nodules. LUNGS: Respiratory effort, unlabored. CHEST: Normal curvature. No thoracic deformity. No chest wall tenderness. Percussion, resonant. Auscultation, clear. No wheezes, no rales, no rhonchi. CARDIOVASCULAR: Precordial exam, nondisplaced. No heaves or pericardial thrills. Rate and rhythm, regular. Heart sounds, normal S1, normal S2. No S3, no gallop, no rub. Systolic murmur, not heard. Diastolic murmur, not heard. EXTREMITIES: No cyanosis, no edema. Peripheral pulses, full and equal in all extremities, except as noted. No bruits appreciated. ABDOMEN: Soft, nondistended. Normal aorta. No bruit. Nontender. No masses. Liver, nontender, no hepatomegaly. Spleen, nontender, no splenomegaly. MUSCULOSKELETAL: No joint tenderness. No joint swelling. No erythema. NEUROLOGICAL: Normal gait, normal strength, normal tone. SKIN: Warm and dry. OVERALL IMPRESSION: Anginal symptomatology with left anterior descending disease. We will proceed with transcatheter revascularization of the left anterior descending. TRANSINT:[id number] Voice Confirmation ID: [id number] DOCUMENT ID: [id number] HISTORY AND PHYSICAL [id number] KATHY MARTINS JEFFREY MD at 1457 CC: [id number] DICTATION DATE: 02/01/18 1145 FORM SETTER STEEL PAN FORMS: 02/01/18 1151 [facility] [address] [place] [address]
[~2018-02-02] VITALS: Ht 175.3 cm; Wt 72.3 kg
--- NOTE | ~2018-02-02 | HEMODYNAMI ---
PATIENT:KATHY MARTINS MEDICAL RECORD: [id number] : 44 LOCATION:[facility] ADMISSION DATE: 02/02/18 Generatedon:02/02/201810:41 Patient name: KATHY MARTINS Patient #: [id number] SSN: : 1940 Date of study: 02/02/2018 Page: Of Hemodynamic Procedure Report Patient Data Patient Demographics Procedure consent was obtained First Name: KATHY Gender: Male Last Name: ELIEZER : 1940 Middle Initial: L Age: 77 year(s) Patient #: [id number] Race: Unknown Additional ID: [id number] Contact details [address]: [address] [place] [address] State: [place] City: [place] Zip code: [address] Past Medical History Allergies: No known allergies Admission Admission Data Admission Date: 02/02/2018 Admission Time: 7:57 Weight (lbs.): 158.73 Weight (kg.): 72 Lab Results Lab Result Date: 02/02/2018 Lab Result Time: 0:00 Biochemistry Name Units Result Min Max BUN mg/dl 17 --(---*)-- 7 18 Creatinine mg/dl 1.1 --(--*-)-- 0.6 1.3 CBC Name Units Result Min Max Hemoglobin g/dl 12.4 *-(----)-- 13.5 17.5 Platelets 10^3/l 345 --(---*)-- 130 400 Procedure Procedure Types Cath Procedure PCI Procedure Coronary Stent Coronary Stent Initial Coronary Stent Additional Procedure Description Procedure Date Procedure Date: 02/02/2018 Procedure Start Time: 10:24 Procedure End Time: 10:41 Procedure Staff Name Function Jona Castellanos MD Performing Physician Brad Benítez RN Nurse Reginaldo Benton RT Monitor Stella Marti RT Scrub Procedure Data Cath Procedure Fluoroscopy Diagnostic fluoroscopy Total fluoroscopy Time: 3.6 time: 3.6 min min Diagnostic fluoroscopy Total fluoroscopy dose: 143 dose: 143 mGy mGy Contrast Material Contrast Material Type Amount (ml) Isovue 300 85 Entry Location Entry Primary Successful Side Size Upsize Upsize Entry Closure Succes sful Closure Location (Fr) 1 (Fr) 2 (Fr) Remarks Device Remarks Femoral Left 6 Fr Exoseal artery Short Estimated blood loss: 10 ml Procedure Complications No complications Procedure Medications Medication Administration Route Dosage Oxygen etCO2 Nasal cannula 2 l/min Heparin Flush Bag added to field 2 bags (1000units/500ml NS) 0.9% NaCl I.V. 100 ml/hr Lidocaine 2% added to field 20 Fentanyl I.V. 50 mcg Versed I.V. 1 mg Fentanyl I.V. 50 mcg Versed I.V. 1 mg Heparin Bolus I.V. 4000 units Hemodynamics Rest HGB: 12.4 (g/dl) Heart Rate: 87 (bpm) Snapshots Pre Cath Intra NCS Post Cath Vital Signs Time Heart Resp SPO2 etCO2 NIBP (mmHg) Rhythm Pain Sedation Rate (ipm) (%) (mmHg) Status Level (bpm) 10:01:01 81 16 98 0 146/87(123) NSR 0 (11) 10(A) , No pain 10:05:19 82 16 98 34.6 149/84(119) NSR 0 (11) 10(A) , No pain 10:09:27 80 16 95 39.1 126/74(108) NSR 0 (11) 10(A) , No pain 10:13:41 82 17 93 30 127/71(108) NSR 0 (11) 10(A) , No pain 10:17:49 80 17 99 16.5 116/74(88) NSR 0 (11) 10(A) , No pain 10:21:58 78 17 99 0 112/69(93) NSR 0 (11) 10(A) , No pain 10:26:06 78 16 99 14.2 99/60(79) NSR 0 (11) 9(A) , No pain 10:30:12 74 17 99 35.3 111/63(83) NSR 0 (11) 9(A) , No pain 10:34:22 81 17 99 33.8 105/66(82) NSR 0 (11) 9(A) , No pain 10:37:16 77 17 99 25.5 125/72(102) NSR 0 (11) 9(A) , No pain Medications Time Medication Route Dose Verified Delivered Reason Notes Effectiveness by by 9:58:07 Oxygen etCO2 2 Jona Brad Per physician Nasal l/min Emanuel Benítez RN cannula 9:58:15 Heparin Flush added 2 Jona Masseyy used for Bag to bags Emanuel Benítez RN procedure (1000units/500ml field NS) 9:58:24 0.9% NaCl I.V. 100 Jona Salinas Per physician ml/hr Emanuel Benítez RN 9:58:33 Lidocaine 2% added 20ml Jona Salinas used for to vial Emanuel Benítez RN procedure field 10:20:07 Fentanyl I.V. 50 Jona Salinas for sedation mcg Emanuel Benítez RN 10:20:13 Versed I.V. 1 mg Jona Masseyy for sedation Emanuel Benítez RN 10:22:54 Fentanyl I.V. 50 Jona Masseyy for sedation mcg Emanuel Benítez RN 10:22:59 Versed I.V. 1 mg Jona Salinas for sedation Emanuel Benítez RN 10:26:30 Heparin Bolus I.V. 4000 Jona Salinas for units Emanuel Benítez RN anticoagulation Procedure Log Time Note 9:40:44 Brad Benítez RN sent for patient. Start room use. 9:50:52 Time tracking: Regular hours (M-F 7:00 - 5:00) 9:50:56 Plan of Care:Hemodynamics will remain stable., Cardiac rhythm will remain stable., Comfort level will be maintained., Respiratory function will remain adequate., Patient/ family verbilizes understanding of procedure., Procedure tolerated without complication., Recovers from procedure without complications.. 9:52:29 Patient received from Pre/Post Procedure Room to CCL 3 Alert and oriented. Tansferred to table in Supine position. 9:52:30 Warm blankets applied, and ramon hugger turned on for patient comfort. 9:52:30 Correct patient and procedure confirmed by team. 9:52:31 Signed procedure consent form obtained from patient. 9:52:32 ECG and BP/O2 sat monitors applied to patient. 9:52:33 Full Disclosure recording started 9:58:07 Oxygen 2 l/min etCO2 Nasal cannula was administered by Brad Benítez RN; Per physician; 9:58:15 Heparin Flush Bag (1000units/500ml NS) 2 bags added to field was administered by Brad Benítez RN; used for procedure; 9:58:24 0.9% NaCl 100 ml/hr I.V. was administered by Brad Benítez RN; Per physician; 9:58:33 Lidocaine 2% 20ml vial added to field was administered by Brad Benítez RN; used for procedure; 9:59:56 Vital chart was started 10:03:27 Baseline sample Acquired. 10:03:33 Baseline sample Acquired. 10:03:37 Rhythm: sinus rhythm 10:03:42 H&P Date Dictated: 02/02/2018 New H&P dictated by physician.. 10:03:43 Pre-procedure instructions explained to patient. 10:03:43 Pre-op teaching completed and patient verbalized understanding. 10:03:45 Family in waiting room. 10:03:47 Patient NPO since Midnight. 10:04:41 Is the patient allergic to Iodine/contrast media? No. 10:04:43 Is patient on blood thinner?Yes 10:04:45 ACC The patient was administered the following blood thiners within the last 24 hours: ACCPlavix 10:04:52 Patient diabetic? No. 10:04:55 Previous problem with sedation/anesthesia? No ? 10:04:56 Snore? No 10:04:57 Sleep apnea? No 10:04:58 Deviated septum? No 10:04:59 Opens mouth fully? Yes 10:04:59 Sticks out tongue? Yes 10:05:01 Airway obstruction? No ? 10:05:03 Dentures? No ? 10:05:05 Pre procedure: left dorsailis pedis pulse 1+ Palpable, but thready & weak; easily obliterated 10:05:11 Patient pain scale 0/10 ?. 10:05:15 IV patent on arrival in left forearm with 0.9% NaCl at O. 10:05:17 Lab results completed and on chart. 10:05:19 Left groin area was prepped with chlora-prep and draped in sterile fashion 10:05:20 Alarms reviewed by R. N. 10:05:20 Sharps counted by scrub and verified by R.N. 10:05:44 Use device set Radial Dx or PCI 10:05:47 Use device set TAUTH PCI 10:05:50 Tegaderm 4 x 4 ([id number]) opened to sterile field. 10:05:53 ACIST Manifold (98599) opened to sterile field. 10:05:53 ACIST Hand Control (25688) opened to sterile field. 10:05:54 Bag Decanter (2002S) opened to sterile field. 10:05:56 ACIST Syringe (92598) opened to sterile field. 10:05:56 Medline Cath Pack ([id number]) opened to sterile field. 10:05:58 DIAGNOSTIC WIRE .035 260cm J wire (661103) opened to sterile field. 10:06:00 INFLATOR Merit BasixCompak (WG7845) opened to sterile field. 10:06:04 CHOICE PT Extra Support 182cm wire ([id number]) opened to sterile field. 10:06:07 SHEATH 6FR Natrona (MUV555) opened to sterile field. 10:10:30 Patient Weight : 158.73 lbs 10:11:13 Lab Result : Hemoglobin 12.4 g/dl 10:11:13 Lab Result : Creatinine 1.1 mg/dl 10:11:13 Lab Result : BUN 17 mg/dl 10:11:13 Lab Result : Platelets 345 10^3/l 10:13:46 Zero performed for pressure channel P1 10:13:50 Zero performed for pressure channel P1 10:19:37 --------ALL STOP TIME OUT------ 10:19:38 Final Timeout: patient, procedure, and site verified with staff and physician. All members of the team are in agreement. 10:19:40 Left groin site verified by team. 10:19:42 Physical assessment completed. ASA score P 2 - A patient with mild systemic disease as per Jona Castellanos MD. 10:19:46 Sedation plan: IV Moderate Sedation Medication:Versed, Fentanyl 10:20:07 Fentanyl 50 mcg I.V. was administered by Brad Benítez RN; for sedation; 10:20:13 Versed 1 mg I.V. was administered by Brad Benítez RN; for sedation; 10:22:54 Fentanyl 50 mcg I.V. was administered by Brad Benítez RN; for sedation; 10:22:59 Versed 1 mg I.V. was administered by Brad Benítez RN; for sedation; 10:24:54 Procedure started. 10:24:57 Local anesthetic to left femerol artery with Lidocaine 2% by Jona Castellanos MD.INITIAL ACCESS ONLY 10:25:32 A 6 Fr Short sheath was inserted into the Left Femoral artery 10:26:23 CHOICE PT Extra Support 182cm wire ([id number]) opened to sterile field. 10:26:29 GUIDE 6FR XBLAD 3.5 catheter ([id number]) opened to sterile field. 10:26:30 Heparin Bolus 4000 units I.V. was administered by Brad Benítez RN; for anticoagulation; 10:26:46 6 Fr XBLAD 3.5 guide catheter was inserted over the wire 10::54 CPTXS wire advanced. 10:27:41 Wire advanced down the LAD. 10:27:47 2nd CPTXS wire advanced. 10:29:12 2nd wire advanced down the DIAG. 10:30:13 Place stent Inflation Number: 1 A AMRTHA RX 2.5 x 15 stent ([id number]) was prepped and advanced across the 1st Diag. The stent was deployed at 13 SARAH for 0:10 (min:sec). 10:30:22 Stent catheter was removed intact over wire. 10:30:38 Wire removed from DIAG. 10:31:28 Inflation number: 1 The stent balloon was then re-inflated across the Mid LAD to 15 SARAH for 0:10 (min:sec). 10:31:43 Stent catheter was removed intact over wire. 10:32:56 Place stent Inflation Number: 2 A MARTHA RX 3.0 x 18 stent ([id number]) was prepped and advanced across the Mid LAD. The stent was deployed at 13 SARAH for 0:10 (min:sec). 10:33:29 Stent catheter was removed intact over wire. 10:33:30 Wire removed. 10:33:35 Guide catheter removed. 10:33:54 EXOSEAL 6Fr (EX600) opened to sterile field. 10:34:11 Sheath removed intact; hemostasis achieved with Exoseal to the Left Femoral artery. 10:34:13 Procedure ended.(Physican Out) 10:36:02 Fluoroscopy time 03.60 minutes. 10:36:07 Fluoroscopy dose: 143 mGy 10:36:07 Flurop Dose total: 143 10:36:11 Contrast amount:Isovue 300 85ml. 10:36:12 Sharps counted by scrub and verified by R.N. 10:36:13 Insertion/operative site no bleeding no hematoma. 10:36:17 Post-op/insertion site Left Femoral artery dressed using a 4 x 4 and Tegaderm. 10:36:18 Post Procedure Pulses reassessed and unchanged 10:36:20 Post-procedure physical assessment completed. ASA score P 2 - A patient with mild systemic disease as per Jona Castellanos MD. 10:36:22 Post procedure rhythm: unchanged. 10:36:25 Estimated blood loss: 10 ml 10:36:27 Post procedure instruction explained to patient.Patient verbalizes understanding. 10:36:27 Patient needs reinforcement of post procedure teaching. 10:36:33 Procedure type changed to Cath procedure, PCI procedure, Coronary Stent, Coronary Stent Initial, Coronary Stent Additional 10:36:35 Procedure and supply charges have been captured, reviewed, submitted and are correct. 10:36:37 Procedure Complication : No complications 10:40:56 Vital chart was stopped 10:40:56 See physician's report for complete and final results. 10:41:01 Report given to Pre/Post Procedure Room. 10:41:03 Patient transfered to Pre/Post Procedure Room with Stretcher. 10:41:05 Procedure ended. 10:41:05 Full Disclosure recording stopped 10:41:09 End room use (Document Last) Intervention Summary Intervention Notes Time ActionType Lesion and Equipment Used Action# Pressure Duration Attributes 10:30:13 Place stent 1st Diag MARTHA RX 2.5 x 1 13 00:10 15 stent ([id number]) 10:31:28 Reinflate Mid LAD MARTHA RX 2.5 x 1 15 00:10 stent 15 stent balloon ([id number]) 10:32:56 Place stent Mid LAD MARTHA RX 3.0 x 2 13 00:10 18 stent ([id number]) Device Usage Item Name Manufacture Quantity Catalog Number Hospital Part Current M inimal Lot# / Charge Number Stock Stock Serial# Code Tegaderm 4 x 4 3M 1 [id number] 364500 [id number] 5 (1626W) ACIST Manifold Acist 1 53032 116441 824552 320497 5 (82702) [employer] ACIST Hand Acist 1 35050 501589 998930 191241 5 Control Medical (98250) Systems Inc Bag Decanter Microtek 1 2001S 185631 82941 914014 5 (2001S) Medical Inc. ACIST Syringe Acist 1 02255 516839 903616 515774 2 0 (59163) Medical Systems Inc Medline Cath Medline 1 [id number] 065283 56837 518032 5 Pack ([id number]) DIAGNOSTIC St Etienne 1 487717 051777 333433 302130 3 0 WIRE .035 260cm J wire (242427) INFLATOR Merit Merit 1 OH1093 861718 009039 414369 1 5 YASSSU (RF5777) CHOICE PT Jermyn 2 [id number] 435252 900099 167130 5 Extra Support Scientific 182cm wire ([id number]) SHEATH 6FR Terumo 1 BOB592 234988 001429 351091 4 0 Natrona (GFR713) GUIDE 6FR Cardinal 1 [id number] 073915 179157 652761 1 0 XBLAD 3.5 Health catheter ([id number]) MARTHA RX 2.5 x Medtronic 1 [id number] 899155 9059033 000675 5 [id number] 15 stent ([id number]) MARTHA RX 3.0 x Medtronic 1 [id number] 806518 3619278 558778 5 [id number] 18 stent ([id number]) EXOSEAL 6Fr Cardinal 1 EX600 586242 580572 761577 1 0 (EX600) Health Signature Audit [place] Stage Time Signature Unsigned Intra-Procedure 02/02/2018 Reginaldo Benton 10:41:21 AM RT(R) Signatures Monitor : Reginaldo Benton RT Signature : Date : Time : [facility] [address] [facility] [place] [address]
[2018-02-02 08:32] VITALS: BP 157/88; Ht 175.3 cm; Wt 72.3 kg
[2018-02-02 08:43] LABS: BASOPHILS 0.4 % (0-2); EOSINOPHILS 1.8 % (0-7); HEMATOCRIT 37.9 % (42.0-54.0); HEMOGLOBIN 12.4 g/dL (13.5-17.5); IMMATURE GRANULOCYTES 0.4 % (0-5); LYMPHOCYTES 26.7 % (15-50); MCH 26.7 pg (26.0-34.0); MCHC 32.7 g/dL (31.0-37.0); MCV 81.7 fL (80.0-100.0); MEAN PLATELET VOLUME 8.8 fL (7.4-10.4); NEUTROPHILS 60.7 % (40-80); RBC 4.64 10x6/uL (4.20-6.10); RDW 13.6 % (11.5-14.5); WBC 8.4 10x3/uL (4.8-10.8)
[2018-02-02 08:54] LABS: ANION GAP 12.7 mmol/L (8-16); CALCIUM 9.7 mg/dL (8.5-10.1); CARBON DIOXIDE 30.1 mmol/L (21.0-32.0); CREATININE - SERUM 1.1 mg/dL (0.6-1.3); POTASSIUM - SERUM 3.8 mmol/L (3.5-5.1)
[2018-02-02 09:01] LABS: PLATELET COUNT 345 10x3/uL (130-400)
--- NOTE | 2018-02-02 13:37 | OP ---
PATIENT NAME: KATHY MARTINS MEDICAL RECORD: [id number] :44 LOCATION:D.CAT ADMISSION DATE: SURGEON: MERLIN DAVIS MD DATE OF OPERATION: 02/02/2018 PROCEDURES: 1. PTCA and stent of LAD. 2. PTCA and stent of LAD diagonal. 3. Selective coronary angiography. INDICATION: Angina and coronary artery disease. PROCEDURE IN DETAIL: After informed consent was obtained and detailed explanation of risks, benefits as well as alternative therapies, the patient elected to proceed with angiogram and angioplasty. The left femoral area was prepped and draped in normal sterile fashion. Left femoral artery was cannulated via modified Seldinger technique with placement of 6-[place] sheath. All catheters exchanged through this sheath. FINDINGS: The left anterior descending has a 90% stenosis as does the diagonal. The diagonal was stented with a 2.5 x 15, the LAD with a 3.0 x 18, both [place] stents. Result was 0% residual stenosis. OVERALL IMPRESSION: Successful PTCA and stent of the LAD and diagonal, both going from 90% initial stenosis to 0% residual. TRANSINT:[id number] Voice Confirmation ID: [id number] DOCUMENT ID: [id number] MERLIN DAVIS MD at 1337 CC: [id number] DICTATION DATE: 02/02/18 1038 RUG DESIGNER: 02/02/18 1131 [facility] [address] [place] [address]
== END | disposition home or self-care (01) ==
LOC: D.CATH 07:57
PROVIDERS: Internal Medicine Interventional Cardiology
DX: I25.119 Atherosclerotic heart disease of native coronary artery with unspecified angina pectoris (principal); I10 Essential (primary) hypertension; E78.5 Hyperlipidemia, unspecified; Z01.812 Encounter for preprocedural laboratory examination
CPT/HCPCS: C9600; C9601

== ENCOUNTER 2018-05-08 06:57 | Inpatient (IN) | payer MEDICARE, OTHER ==
[2018-05-08] VITALS (41 sets, daily range): BP systolic 87–142; BP diastolic 40–82; BMI 23.3; BMI 20.2
[~2018-05-08] VITALS: Ht 175.3 cm; Wt 73.9 kg
--- NOTE | ~2018-05-08 | OP ---
PATIENT NAME: KATHY MARTINS MEDICAL RECORD: [id number] :44 LOCATION:[facility] D.[facility]02 ADMISSION DATE:05/08/18 SURGEON: SJ JARQUIN MD DATE OF OPERATION: 05/08/2018 SURGEON: Sj Jarquin MD ANESTHESIA: General endotracheal, Dr. Connor. OPERATION PERFORMED: Left carotid endarterectomy with patch angioplasty. PREOPERATIVE DIAGNOSIS: Severe left internal carotid artery stenosis. POSTOPERATIVE DIAGNOSIS: Severe left internal carotid artery stenosis. INDICATION FOR OPERATION: Severe left internal carotid artery stenosis. FINDINGS AT OPERATION: Severe left internal carotid artery stenosis. There were no EEG changes with clamping or unclamping of the carotid artery. ESTIMATED BLOOD LOSS: 100 mL. DESCRIPTION OF PROCEDURE: After informed consent, adequate preoperative medication evaluation, the patient was brought to the operating room, placed on table in supine position. After induction of general endotracheal anesthesia and application of appropriate monitoring devices, the left neck and chest were prepped and draped in sterile field, utilizing Betadine scrub, alcohol, and Betadine solution. Betadine-impregnated drape was also used. An oblique incision was made in the skin crease. Dissection carried down the fascia. Hemostasis maintained with electrocautery. The facial vein was identified and divided. Utilizing sharp dissection, the common carotid, internal and external carotid arteries were dissected free of surrounding structures, protecting the neurological structures. The patient was given a calculated dose of heparin, after 3 minutes, clamps were applied. After 2 minutes, no EEG change. The arteriotomy was made and extended with Ragland scissors. Artery underwent endarterectomy sharply. Artery underwent extensive debridement and irrigation. Utilizing a CorMatrix vascular patch and running 7-0 Prolene suture, the arteriotomy was closed with a patch angioplasty technique. All maneuvers to remove trapped air were performed. The clamps were removed sequentially. There were no EEG changes. The patient was given a calculated dose of protamine to reverse the heparin. Hemostasis was achieved. A #7 Ned-Aguilar drain was left in the depths of the wound and brought through the base of the neck. Neck was again irrigated. Instrument count and sponge count were correct times 2. Neck was closed in layers utilizing 3-0 Vicryl on the platysma, 5-0 subcuticular Monocryl on the skin. Sterile dressings were applied. The patient tolerated the procedure well and was transferred to cardiovascular recovery in stable condition. TRANSINT:[id number] Voice Confirmation ID: [id number] DOCUMENT ID: [id number] OPERATIVE REPORT [id number] KATHY MARTINS EDWARD MD CC: [id number] DICTATION DATE: 05/08/18 1342 TIMBER CUTTER: 05/08/18 1501 ADM IN [facility] [address] [place] [address]
[2018-05-08 07:38] LABS: HEMATOCRIT 37.9 % (42.0-54.0); HEMOGLOBIN 11.9 g/dL (13.5-17.5); MCH 25.6 pg (26.0-34.0); MCHC 31.4 g/dL (31.0-37.0); MCV 81.5 fL (80.0-100.0); MEAN PLATELET VOLUME 8.8 fL (7.4-10.4); RBC 4.65 10x6/uL (4.20-6.10); RDW 14.1 % (11.5-14.5); WBC 9.7 10x3/uL (4.8-10.8)
[2018-05-08 07:40] LABS: APTT 39.4 SECONDS (22.8-39.4); INR 1.08 (0.85-1.17); PROTIME 13.5 SECONDS (11.6-15.0)
[2018-05-08 07:42] LABS: APPEARANCE CLEAR (CLEAR); COLOR YELLOW (YELLOW)
[2018-05-08 07:43] LABS: BILIRUBIN NEGATIVE (NEGATIVE); GLUCOSE NEGATIVE (NEGATIVE); KETONE NEGATIVE (NEGATIVE); NITRITE NEGATIVE (NEGATIVE); PROTEIN NEGATIVE (NEGATIVE); SPECIFIC GRAVITY 1.015 (1.005-1.020); UROBILINOGEN NORMAL (NORMAL)
[2018-05-08 07:45] LABS: ALBUMIN 3.5 g/dL (3.4-5.0); ANION GAP 11.6 mmol/L (8-16); BILIRUBIN - TOTAL 0.3 mg/dL (0.2-1.3); CALCIUM 9.2 mg/dL (8.5-10.1); CARBON DIOXIDE 30.3 mmol/L (21.0-32.0); CREATININE - SERUM 1.1 mg/dL (0.6-1.3); POTASSIUM - SERUM 3.9 mmol/L (3.5-5.1); PROTEIN - SERUM 8.5 g/dL (6.4-8.2)
[2018-05-08] MEDS ORDERED: TOPROL XL25 MG PO (07:55)
--- NOTE | 2018-05-08 14:00 | NUR ---
PT ARRIVED IN THE UNIT. PT STILL DROWSEY BUT ALERT AND ORIENTED. PT NEURO CHECKS WNL. LEFT NECK INCISION NOTED WITH A DRESSING OVER IT C/D/I WITH A SINGLE NORRIS DRAIN COMPRESSED WITH C/D/I. BLOODY DRAINAGE NOTED. RIGHT RADIAL DEEP NOTED. LEFT FA IV NOTED PATENT WITH NO S/SX OF INFILTRATION NOTED. FC NOTED WITH CLEAR, YELLOW URINE. NITRO ALREADY INFUSING ON ARRIVAL. LEFT UPPER CHEST PACEMAKER NOTED. CALL LIGHT IN REACH. WILL CONT POC.
--- NOTE | 2018-05-08 14:16 | NUR ---
CXR TECHS AT THE PTS BEDSIDE.
--- NOTE | 2018-05-08 14:30 | NUR ---
PT BECOMING HYPOTENSIVE. NITRO PAUSED AND SATISH TITRATED PER ORDERS TO MAINTAIN BP PER ORDERS. SEE IV FLOW SHEET
--- NOTE | 2018-05-08 17:15 | NUR ---
DINNER PROVIDED FOR THE PT. PT ADVANCE TO PO FLUIDS WITH NO ISSUES. PO MEDS GIVEN WITH NO ISSUES.
--- NOTE | 2018-05-08 19:17 | NUR ---
REPORT RECEIVED, SHIFT ASSESSMENT COMPLETED PER FLOW SHEET. AAOX4, WATCHING TV. PPP. RADIAL AND CVP LINES LEVELED AND ZEROED WITH GOOD WAVEFORM. ICE PACK PROVIDED TO INCISION SITE PER DOCTOR'S ORDERS. TEACHING PROVIDED ON IMPORTANCE OF COUGH/DEEP BREATHING AND USE ON IS, COUGH STRONG AND NON-PRODUCTIVE, PULLING [phone] ON IS. KEESHA HOSE AND SCD'S ON. CONDE CATHETER TO GRAVITY SECURED. MOVES ALL EXTREMITIES. PERRLA. SEE FLOW SHEET FOR COMPLETE ASSESSMENT. CALL LIGHT WITHIN REACH. WILL CONTINUE TO MONITOR.
--- NOTE | 2018-05-08 21:00 | NUR ---
AAOX4, WATCHING TV, NO ACUTE DISTRESS NOTED, DENIES NEEDS. WILL CONTINUE TO MONITOR.
--- NOTE | 2018-05-08 23:01 | NUR ---
REASSESSMENT COMPLETED PER FLOW SHEET, SEE FOR DETAILS. SBP IN THE 80'S, NEOSYNEPRHINE INCREASED TO 0.2 MCG/KG/MIN OR 2.2 MLS/HR, AFTER ABOUT 5 MINUTES BP INCREASED TO 98/41, WILL CONTINUE TO MONITOR. SEE FLOW SHEET FOR COMPLETE ASSESSMENT.
[2018-05-09] VITALS (33 sets, daily range): BP systolic 102–138; BP diastolic 44–79; Ht 175.3 cm; Wt 73.9 kg
--- NOTE | 2018-05-09 01:00 | NUR ---
NO ACUTE CHANGES NOTED, DENIES NEEDS, ALERT AND ORIENTED X4. WILL CONTINUE TO MONITOR.
--- NOTE | 2018-05-09 03:04 | NUR ---
REASSESSMENT COMPLETED PER FLOW SHEET, SEE FOR DETAILS. NO ACUTE DISTRESS NOTED. DENIES NEEDS. CALL LIGHT WITHIN REACH. WILL CONTINUE TO MONITOR.
--- NOTE | 2018-05-09 05:00 | NUR ---
AWAKE AND ALERT, NO ACUTE DISTRESS NOTED, DENIES NEEDS. BP STABLE. WILL CONTINUE TO MONITOR. CALL LIGHT WITHIN REACH.
--- NOTE | 2018-05-09 07:00 | NUR ---
REPORT RECEVIED FROM THE OFF GOING RN. SEE ASSESSMENT IN THE FLOW SHEET. PT A&O X4 WITH CLEAR SPEECH. NEURO CHECKS GROSSLY INTACT. BILATERAL CREW DIRECTOR EQUAL. NO STRIDOR NOTED AND TRACHEA MIDLINE. LEFT NECK INCISION C/D/I AND A SINGLE COMPRESSED NORRIS DRAIN X1 NOTED TO LEFT UPPER CHEST WITH SCANT AMOUNT OF BLOODY DRAINAGE. RIGHT SUB CLAVIAN CVL NOTED C/D/I AND PATENT. SEE IV FLOW SHEET FOR IV GTT'S. R RADIAL DEEP NOTED WITH A GOOD WAVE FORM. WRIST PROTECTOR ON. CAP REFILL <3 SECONDS. DRESSING C/D/I. FC NOTED WITH CLEAR, YELLOW URINE NOTED. VSS. CALL LIGHT IN REACH. WILL CONT POC.
--- NOTE | 2018-05-09 07:10 | NUR ---
BAUDILIO TOM PULLED NORRIS DRAIN AND PLACED A DRESSING OVER SITE. DRESSING C/D/I. PT TOLERATED WELL.
--- NOTE | 2018-05-09 08:00 | NUR ---
MEAL TRAY PROVIDED FOR THE PT. PT C/O A DRY THROAT (PT STATES ITS A CHRONIC ISSUE). NO DYSPAGIA NOTED. AM MEDS GIVEN WITH NO ISSUES. CALL LIGHT IN REACH. WILL CONT POC.
--- NOTE | 2018-05-09 10:24 | NUR ---
10 CC REMOVED FROM FC BULB. FC DC'D PER ORDERS. PT TOELRATED WELL. EDUCATED THE PT WHAT TO EXPECT AND TO REPORT IF HE IS UNABLE TO VOID. URINAL PROVIDED. DEEP REMOVED PER ORDERS WITH THE CATHETER TIP INTACT. PRESSURE HELD AND PRESSURE DRESSING APPLIED. NO S/SX OF HEMATOMA NOTED. CALL LIGHT IN REACH. WILL CONT POC.
--- NOTE | 2018-05-09 10:50 | NUR ---
DR JARQUIN AT THE PTS BEDSIDE. OK TO GO HOME AFTER 1500.
--- NOTE | 2018-05-09 11:06 | NUR ---
PT AMBULATED WITH PHYSCIAL THEARPY UP AND DOWN THE [address] WAY WITH AN NORMAL STEADY GAIT. VSS. CONT POC.
[2018-05-09] MEDS ORDERED: ULTRAM50 MG PO (11:11)
--- NOTE | 2018-05-09 13:18 | MORECARE ---
CASE MANAGEMENT DISCHARGE SUMMARY PATIENT: KATHY MARTINS UNIT: [id number] ADM DATE: 05/08/18 AGE: 77 : 42 SEX: M ROOM/BED: D.02 AUTHOR: ALMA,DOC PHYSICIAN: REFERRING PHYSICIAN: BRAYDON JARQUIN MD DATE OF SERVICE: 05/09/18 Discharge Plan Patient Name: KATHY MARTINS Facility: [facility]:[place] : 1940 Planned Disposition: Home Anticipated Discharge Date: Discharge Date: Expected LOS: Initial Reviewer: [email or web address] Initial Review Date: 05/08/2018 Generated: 05/09/18 2:17 pm Comments DCP- Discharge Planning Updated by [email or web address]: Sendy Mccurdy on 05/09/18 12:[address] Patient Name: KATHY MARTINS Admission Status: Elective Accout number: [id number] Admission Date: 05-08-2018 : 1940 Admission Diagnosis: Attending: BRAYDON JARQUIN Current LOS: 1 Anticipated DC Date: Planned Disposition: Home Primary Insurance: MEDICARE A & B Discharge Planning Comments: CM met with patient at bedside after explaining CM role and obtaining verbal consent. Patient lives at home with his Milagros and plans to return there upon discharge. Patient feels this would be a safe discharge. CM discussed availability / needs of home health and medical equipment. Patient denies any discharge needs at this time. Patient states he will have his drive him home upon discharge. CM will continue to follow and assist as needed with discharge planning / needs. Hand Reamer: Sendy Mccurdy DCPIA - Discharge Planning Initial Assessment Updated by [email or web address]: Sendy Mccurdy on 05/09/18 1:15 pm * Is the patient Alert and Oriented? Yes * How many steps to enter\exit or inside your home? * PCP Rajinder * [facility] * Preadmission Environment Home with Family * ADLs Independent * Other Equipment walker, cane * List name and contact numbers for known caregivers / representatives who currently or will assist patient after discharge: Milagros Martins - - [phone] * Verbal permission to speak to the caregivers and representatives has been obtained from the patient. Yes * Community resources currently utilized None * Additional services required to return to the preadmission environment? No * Can the patient safely return to the preadmission environment? Yes * Has this patient been hospitalized within the prior 30 days at any hospital? No Patient Name: KATHY MARTINS Page [id number] at 1318 All edits/amendments must be made on the electronic document DICTATION DATE: 05/09/181316 ECONOMICS CONSULTANT: ALEC 05/09/181316 RPT#: [id number] DC DATE: STATUS: ADM IN [facility] [address] [place] [address] END OF REPORT
--- NOTE | 2018-05-09 15:34 | NUR ---
CENTRAL LINE PULLED PER ORDERS. DRESSING C/D/I. CATHETER TIP INTACT. DRESSING APPLIED. BRANDIE MARTINS () CALLED AND MADE AWARE OF PT BEING READY FOR DISCHARGE.
--- NOTE | 2018-05-09 16:20 | NUR ---
DISCHARGE INSTRUCTION WENT OVER WITH THE PT AND CORRECT PAPER WORK SIGNED. PT AND DENIES QUSTIONS AT THIS TIME. PT LEFT WITH ALL BELONINGS ACCOUNTED FOR. PT LEFT IN A STABLE CONDITION.
--- NOTE | 2018-05-10 15:08 | MORECARE ---
CASE MANAGEMENT DISCHARGE SUMMARY PATIENT: KATHY MARTINS UNIT: [id number] ADM DATE: 05/08/18 AGE: 77 : 44 SEX: M ROOM/BED: D.02 AUTHOR: ALMA,DOC PHYSICIAN: REFERRING PHYSICIAN: BRAYDON JARQUIN MD DATE OF SERVICE: 05/10/18 Discharge Plan Patient Name: KATHY MARTINS Facility: [facility]:[place] : 1940 Planned Disposition: Home Anticipated Discharge Date: Discharge Date: 05/09/2018 Expected LOS: Initial Reviewer: [email or web address] Initial Review Date: 05/08/2018 Generated: 05/10/18 4:08 pm Comments DCP- Discharge Planning Updated by [email or web address]: Sendy Mccurdy on 05/09/18 12:[address] Patient Name: KATHY MARTINS Admission Status: Elective Accout number: [id number] Admission Date: 05-08-2018 : 1940 Admission Diagnosis: Attending: BRAYDON JARQUIN Current LOS: 1 Anticipated DC Date: Planned Disposition: Home Primary Insurance: MEDICARE A & B Discharge Planning Comments: CM met with patient at bedside after explaining CM role and obtaining verbal consent. Patient lives at home with his Milagros and plans to return there upon discharge. Patient feels this would be a safe discharge. CM discussed availability / needs of home health and medical equipment. Patient denies any discharge needs at this time. Patient states he will have his drive him home upon discharge. CM will continue to follow and assist as needed with discharge planning / needs. Special Education Supervisor: Sendy Mccurdy DCPIA - Discharge Planning Initial Assessment Updated by [email or web address]: Sendy Mccurdy on 05/09/18 1:15 pm * Is the patient Alert and Oriented? Yes * How many steps to enter\exit or inside your home? * PCP Rajinder * Pharm[facility] * Preadmission Environment Home with Family * ADLs Independent * Other Equipment walker, cane * List name and contact numbers for known caregivers / representatives who currently or will assist patient after discharge: Milagros Martins - - [phone] * Verbal permission to speak to the caregivers and representatives has been obtained from the patient. Yes * Community resources currently utilized None * Additional services required to return to the preadmission environment? No * Can the patient safely return to the preadmission environment? Yes * Has this patient been hospitalized within the prior 30 days at any hospital? No Last DP export: 05/09/18 12:17 pm Patient Name: KATHY MARTINS Page [id number] at 1508 All edits/amendments must be made on the electronic document DICTATION DATE: 05/10/181506 PROCESS WORKER: ALEC 05/10/18 1507 RPT#: [id number] DC DATE:05/09/18 STATUS: DIS IN [facility] [address] [place] [address] END OF REPORT
== END 2018-05-09 16:23 | disposition home or self-care (01) | DRG 39 ==
LOC: D.SDCHOLD 06:57 → D.CVICU 12:03
PROVIDERS: ADMIT Internal Medicine Cardiovascular Disease; ATTEND Internal Medicine Cardiovascular Disease
PROC: 03UL0JZ Supplement Left Internal Carotid Artery with Synthetic Substitute, Open Approach (ICD-10-PCS; 2018-05-08)
PROC: 03CL0ZZ Extirpation of Matter from Left Internal Carotid Artery, Open Approach (ICD-10-PCS; principal; 2018-05-08 11:00)
DX: I65.22 Occlusion and stenosis of left carotid artery (principal); I10 Essential (primary) hypertension; Z95.0 Presence of cardiac pacemaker

== ENCOUNTER → 2019-01-01 09:22 | Outpatient (CLI) | payer MEDICARE, OTHER ==
[2018-05-09 08:58] VITALS: BMI 24.0
[~2019-01-01 09:22] MED LIST changes: +TOPROL XL25 MG PO; +ULTRAM50 MG PO
== END | disposition home or self-care (01) ==
LOC: D.CT 09:22
PROVIDERS: ATTEND Family Medicine
DX: H68.1 Obstruction of Eustachian tube (principal); H90.11 Conductive hearing loss, unilateral, right ear, with unrestricted hearing on the contralateral side; H61.21 Impacted cerumen, right ear

== ENCOUNTER → 2019-05-24 11:03 | Outpatient (CLI) | payer OTHER ==
[2018-05-09 08:58] VITALS: BMI 24.0
== END | disposition home or self-care (01) ==
LOC: D.US 11:03
PROVIDERS: ATTEND Internal Medicine Cardiovascular Disease
DX: I65.23 Occlusion and stenosis of bilateral carotid arteries (principal)